=== PATIENT | male | born 1975 | race Caucasian/White ===

== ENCOUNTER 2021-01-04 17:11 | Emergency (ER) | payer BC, SELFPAY ==
[2021-01-04 17:16] VITALS: BP 126/88; PULSE 70; RESP 18; TEMP 36.4; O2SAT 99
[2021-01-04] MEDS: LIDOCAINE HCL 1% LOCAL INJ 20 ML VIAL (17:48)
--- NOTE | 2021-01-04 18:29 | ED.GENADULT ---
HPI - General Adult General Chief complaint: Wound/Laceration Stated complaint: laceration Time Seen by Provider: 01/04/21 17:13 Source: patient and RN notes reviewed Mode of arrival: ambulatory Limitations: no limitations History of Present Illness HPI narrative: Patient is a 45-year-old male who presents to emergency department for evaluation of laceration of the right davis that occurred just prior to arrival using a razor knife patient notes his tetanus may not be up-to-date notes mild aching pain worse with activity and movement presents in no distress has no other complaints Related Data Allergies Allergy/AdvReac Type Severity Reaction Status Date / Time No Known Allergies Allergy Unverified 01/11/18 06:27 Review of Systems Review of Systems: All systems reviewed & are unremarkable except as noted in HPI and below PMFSH Social History Social History (Updated 01/04/21 @ 18:31 by Santana Coreas PA-C) Smoking status: Never smoker Gender identity (if verbalized by the patient): Male Exam Narrative: Exam Narrative: GENERAL: Well-appearing, well-nourished, and in no acute distress. HEAD: Normocephalic, atraumatic. EYES: PERRLA and EOMI. ENT: Nares clear, no rhinorrhea or epistaxis. Mucous membranes moist. EXTREMITIES: Normal range of motion. No edema. SKIN: Warm, dry, no rash. 2.5 cm linear laceration of the anterior right davis NEURO: No focal deficits. Alert and oriented x3. PSYCH: Normal mood and affect. Course Course Emergency Course: Patient evaluated the emergency department for right lower extremity laceration and closure of the wound in the ER provided with reasons to return felt appropriate for outpatient reevaluation Vital Signs Vital signs: Vital Signs Temperature 97.5 F L 01/04/21 17:16 Pulse Rate 70 01/04/21 17:16 Respiratory Rate 18 01/04/21 17:16 Blood Pressure 126/88 01/04/21 17:16 Pulse Oximetry 99 01/04/21 17:16 Temperature 97.5 F L 01/04/21 17:16 Pulse Rate 70 01/04/21 17:16 Respiratory Rate 18 01/04/21 17:16 Blood Pressure 126/88 01/04/21 17:16 Pulse Oximetry 99 01/04/21 17:16 Procedures Laceration Laceration 1: Date: 01/04/21 Time: 18:32 Site: lower extremity Side (If applicable): right Size (cm): 2.5 Description: linear Depth: simple, single layer Local Anesthetic: lidocaine 1% Pre-repair: wound explored, irrigated and irrigated extensively ====== Skin Level ====== Skin layer closed with: giovanny Number of sutures: 5 ====== Subcutaneous Layer ====== ====== Muscle Layer ====== ====== Tendon Layer ====== Dressing: Antibiotic ointment nonadhesive 4 x 4 and Coban placed post procedure neurovascularly intact pre and post procedure Medical Decision Making MDM Narrative Medical decision making narrative: Patients injury or pain is consistent with musculoskeletal etiology. No signs of neurological or vascular compromise on exam. Compartments and tisues are soft without signs of compartment syndrome. Pain is felt appropriate for further evaluation on an outpatient basis. Had closure of laceration of the emergency department tetanus was updated Vital Signs Vital Signs: Vital Signs Temperature 97.5 F L 01/04/21 17:16 Pulse Rate 70 01/04/21 17:16 Respiratory Rate 18 01/04/21 17:16 Blood Pressure 126/88 01/04/21 17:16 Pulse Oximetry 99 01/04/21 17:16 Temperature 97.5 F L 01/04/21 17:16 Pulse Rate 70 01/04/21 17:16 Respiratory Rate 18 01/04/21 17:16 Blood Pressure 126/88 01/04/21 17:16 Pulse Oximetry 99 01/04/21 17:16 Discharge Plan Discharge Clinical Impression: Laceration Patient Disposition: Home, Self-Care Condition: Stable Instructions: Antibiotic Form, Laceration (ED) Additional Instructions: Keep wound clean and dry. Do not soak, take baths, or swim until wound is completely healed. If
[2021-01-04] MEDS: TETANUS,DIPHTHERIA,AC PERTUSSIS ADULT (0.5 ML) BOOSTRIX IM (18:48)
== END 2021-01-04 18:53 | disposition home or self-care (01) ==
PROVIDERS: Emergency Provider Emergency Medicine; PCP Family Medicine
DX: S81.811A Laceration without foreign body, right lower leg, initial encounter (principal); Z23 Encounter for immunization; W27.0XXA Contact with workbench tool, initial encounter
CPT/HCPCS: 12001; 90471; 90715; 99282

== ENCOUNTER 2023-02-08 20:36 | Emergency (ER) | payer BC, SELFPAY | END 2023-02-08 21:06 | disposition left against medical advice (07) | PROVIDERS: PCP Family Medicine | DX: Z53.21 Procedure and treatment not carried out due to patient leaving prior to being seen by health care provider (principal) | CPT/HCPCS: 99199 ==

== ENCOUNTER 2023-02-08 21:20 | Emergency (ER) | payer BC, SELFPAY ==
--- NOTE | ~2023-02-08 | XR_ITS ---
EXAMINATION: XR shoulder RT min 2V DATE: 02/08/2023 21:38 INDICATION: Right shoulder pain post fall while wrestling TECHNIQUE: AP internally and externally rotated, AP oblique externally rotated and transscapular Y vi ews of the right shoulder were obtained. COMPARISON: None FINDINGS: There is mild widening of the right acromioclavicular joint particularly when compared with earlier c hest radiograph dated 12/21/2008. There appears to be a minimal amount of cephalad subluxation of the l ateral head of the clavicle and slight widening of the coracoclavicular interval on the internally ro tated view. Mild S-shaped curvature of the mid to upper thoracic spine. Alignment is otherwise normal . No fracture. Glenohumeral joint space is normal. Visualized portions of the lungs are clear. No fra cture. Glenohumeral joint is normal. Acromioclavicular joint is normal. Soft tissues are unremarkable . IMPRESSION: Acromioclavicular joint separation, likely type III. No fracture. Reviewed, dictated and finalized at location A.
[2023-02-08 21:25] VITALS: BP 141/78; PULSE 65; RESP 14; TEMP 37; O2SAT 96
--- NOTE | 2023-02-09 00:51 | ED.UPPEXIN ---
HPI - Extremity Injury (Upper) General Chief Complaint: Extremity Injury, Upper Stated Complaint: shoulder Time Seen by Provider: 02/09/23 00:39 Source: patient Mode of arrival: ambulatory Limitations: no limitations History of Present Illness HPI narrative: This is a 47-year-old male who presents to emergency department for right shoulder pain after an injury just prior to arrival. Reports he fell onto the right shoulder. He has had pain in deformity to the shoulder. He was evaluated at urgent care and sent here for further management. Reports decreased range of motion due to pain. Denies numbness. Related Data Allergies Allergy/AdvReac Type Severity Reaction Status Date / Time No Known Allergies Allergy Verified 02/09/23 00:42 Review of Systems Review of Systems: CONSTITUTIONAL: Denies fever MUSCULOSKELETAL: Reports joint pain, and myalgia. NEUROLOGIC: Denies numbness All systems reviewed & are unremarkable except as noted in HPI and below PMFSH Past Medical History Medical History (Updated 02/09/23 @ 00:54 by Stacy Ariza PA-C) No active medical problems Social History Social History (Updated 01/04/21 @ 18:31 by Santana Coreas, NICHELLE) Smoking status: Never smoker Gender identity (if verbalized by the patient): Male Exam Narrative: GENERAL: Well-appearing, well-nourished, and in no acute distress. HEAD: Normocephalic, atraumatic. EYES: EOMI. EXTREMITIES: Decreased active ROM in the right shoulder above 90 degrees. Deformity at the AC joint. Normal radial pulse. Normal sensation SKIN: Warm, dry, no rash. NEURO: No focal deficits. Alert and oriented x3. PSYCH: Normal mood and affect Course Course Emergency Course: Patient was updated on workup and agrees with plan of care Vital Signs Vital signs: Vital Signs Temperature 98.6 F 02/08/23 21:25 Pulse Rate 65 02/08/23 21:25 Respiratory Rate 14 02/08/23 21:25 Blood Pressure 141/78 H 02/08/23 21:25 Pulse Oximetry 96 02/08/23 21:25 Oxygen Delivery Room Air 02/08/23 21:25 Temperature 98.6 F 02/08/23 21:25 Pulse Rate 65 02/08/23 21:25 Respiratory Rate 14 02/08/23 21:25 Blood Pressure 141/78 H 02/08/23 21:25 Pulse Oximetry 96 02/08/23 21:25 Oxygen Delivery Room Air 02/08/23 21:25 MDM - Extremity Injury (Upper) MDM Narrative Medical decision making narrative: Patient presents the emergency department for right shoulder pain after an injury just prior to arrival. Right shoulder x-ray shows AC separation. Patient placed in sling. He does report he has seen Dr. Ring in the past and would like to follow up with him again. He is neurovascularly intact. He was given warnings to return to the ER Differential Diagnosis Differential diagnosis: Likely other (Shoulder dislocation, AC separation) Imaging Data Radiologist's impression: ITS Impressions Shoulder X-Ray 02/08/23 21:58 IMPRESSION: Acromioclavicular joint separation, likely type III. No fracture. Critical Care Time Critical Care Time Critical Care Time: No Discharge Plan Discharge Clinical Impression: AC separation Qualifiers: Encounter type: initial encounter Laterality: right Qualified Code(s): S43.101A - Unspecified dislocation of right acromioclavicular joint, initial encounter Patient Disposition: Home, Self-Care Condition: Stable Instructions: Acromioclavicular Separation (ED) Additional Instructions: Return to the ER if you experience fever, redness and swelling of the arm, numbness, or any other symptoms that are concerning to you Wear sling. Rest, use ice, take anti-inflammatories (Aleve, Ibuprofen, Naproxen, etc) or Tylenol as needed for pain Follow up with the orthopedics Follow-up/Referrals: Garrett,Zeyad Rangel MD [Primary Care Provider] - Paul Ring MD [Physician] - 1 Week
[2023-02-09 00:59] VITALS: BP 128/87; PULSE 54; RESP 16; O2SAT 100
== END 2023-02-09 00:59 | disposition home or self-care (01) ==
PROVIDERS: Emergency Provider Physician Assistant; PCP Family Medicine
DX: S43.101A Unspecified dislocation of right acromioclavicular joint, initial encounter (principal); W19.XXXA Unspecified fall, initial encounter
CPT/HCPCS: 73030; 99283

== ENCOUNTER 2023-12-16 11:19 | Outpatient (CLI) | payer BC, SELFPAY ==
--- NOTE | ~2023-12-16 | XR_ITS ---
3 VIEWS LUMBAR SPINE Ordering provider: Megha Castillo History: . Low back pain . Comparison: None. FINDINGS: VERTEBRAL BODIES: No visible fracture or subluxation. DISK SPACES: Normal. SOFT TISSUES: Normal. IMPRESSION: No acute osseous abnormality lumbar spine. Reviewed, dictated and finalized at location A.
== END 2023-12-16 11:20 ==
DX: M54.50 Low back pain, unspecified (principal); G89.29 Other chronic pain
CPT/HCPCS: 72100

== ENCOUNTER 2024-10-15 16:08 | Outpatient (CLI) | payer BC, SELFPAY ==
--- NOTE | ~2024-10-15 | XR_ITS ---
XR finger 4th LT min 2V Ordering provider: Phill Milan MD History: . M20.012 - Mallet finger of left finger(s) . Comparison: None. FINDINGS: BONES: No acute fracture or dislocation. JOINT SPACES: Normal. SOFT TISSUES: Normal. IMPRESSION: No acute osseous abnormality. Reviewed, dictated and finalized at location A.
--- OUTSIDE RECORDS SUMMARY | 2024-10-15 18:08 | XMS_ITS | Clinical Summary ---
Author Organization [facility] Address [address] [place] [id number] Care Team Providers Care Command Post Craftsman Name Role Phone Zeyad Tucker MD Primary Care Provid er Allergies No known active allergies Medications rjmgw-6-ejo-epa -dpa-fish oil 1,050-1,200 mg capsuleIndicati ons:supplement Take 1 capsule by mouth every morning Active ascorbic acid (vitamin C) 100 mg tabletIndicatio ns:supplement Take 5 tablets (500 mg total) by mouth every morning Active glucos sul 2KCl/msm/chond/ C/Mn (GLUCOSAMINE CHONDROITIN ORAL)Indication s:joints Take 1 tablet/capsule by mouth every morning Active oxyCODONE (ROXICODONE) 5 mg immediate release tabletIndicatio ns:Pain Take 1 tablet (5 mg total) by mouth every 6 (six) hours as needed for pain 28 tablet 3 Active ketorolac (TORADOL) 10 mg tablet Take 1 tablet (10 mg total) by mouth every 6 (six) hours as needed for pain (first line pain) 12 tablet 3 Active senna-docusate (PERICOLACE) 8.6-50 mg Take 1 tablet by mouth 2 (two) times a day as needed for constipation 30 tablet 3 Active Active Problems Problem Noted Date Diagnosed Date Acromioclavicular joint injury, right, subsequen t encounter 05/09/2023 ACL graft tear, initial encounter 03/07/2019 Overview (03/07/2019): Added automatically from request for surgery [id number] Surgical History Surgery Date Site/Laterality Comments KNEE ARTHROSCOPY W/ ACL RECONSTRUCTION 06/20/2014 - 06/19/2015 Left anchors/screws placed KNEE ARTHROSCOPY W/ ACL RECONSTRUCTION 06/20/2006 - 06/19/2007 Right anchors/screws placed FOOT FRACTURE SURGERY 06/20/2012 - 06/19/2013 Left shaved bone behind big toe HAND SURGERY 06/20/2017 - 06/19/2018 Right small finger. GUM SURGERY x5 KNEE ARTHROSCOPY W/ ACL RECONSTRUCTION AND PATELLA GRAFT 04/26/2019 Left Medical History Medical History Date Comments Arthritis knee Delayed emergence from general anesthesia slow to wake after first ACl 2006. No problems since with other surgeies Family History Medical History Relation Name Comments Anesthesia problems Neg Hx Social History Tobacco Use Types Packs/Day Years Used Date Smoking Tobacco: Never Smokeless Tobacco: Never Alcohol Use Standard Drinks/Week Comments Yes 0 (1 standard drink = 0.6 oz pur e alcohol) rarely-1 beer every 2 weeks AUDIT-C Answer Date Recorded Q1: How often do you have a drink containing alc ohol? Monthly or less 05/25/2023 Q2: How many drinks containi ng alcohol do you have on a typical day when you are drinking? 1 or 2 05/25/2023 Q3: How often do you have si x or more drinks on one occasion? Never 05/25/2023 Personal Safety Answer Date Recorded Have you ever been in or are you currently in a harmful physical or emotional relationship or is someone making you feel afraid or unsafe? Denies 06/14/2023 Sex and Gender Information Value Date Recorded Sex Assigned at Not on file Legal Sex Male 7:39 PM LOCOMOTIVE DRIVER Gender Identity Male 11/30/2019 10:38 PM CDT Sexual Orientation Straight 11/30/2019 10 :38 PM CDT Obstetrics History Last Filed Vital Signs Vital Sign Reading Time Taken Comments Blood Pressure 108/73 06/14/2023 2:30 PM LOCOMOTIVE DRIVER Pulse 60 06/14/2023 2:35 PM LOCOMOTIVE DRIVER Temperature 36.8 C (98.2 F) 06/14/2023 2:20 PM LOCOMOTIVE DRIVER Respiratory Rate 14 06/14/2023 2:35 PM LOCOMOTIVE DRIVER Oxygen Saturation 95% 06/14/2023 2:35 PM LOCOMOTIVE DRIVER Inhaled Oxygen Concentration - - Weight 72.1 kg (158 lb 14.4 oz) 06/14/2023 9:54 AM LOCOMOTIVE DRIVER Height 172.7 cm (5' 8 ) 06/14/2023 9:54 AM LOCOMOTIVE DRIVER Body Mass Index 24.16 06/14/2023 9:54 AM LOCOMOTIVE DRIVER Plan of Treatment Health Maintenance Due Date Last Done Comments Colon Cancer Screening-Colonoscopy 1975 Depression Screening 1975 Hepatitis C Screening 1975 Hepatitis B Screening 1993 Regular Well Visit/Exam 18-64 1993 Covid-19 Vaccine (3 - 2023-2 5 season) 2024 10/30/2020, 10/03/2020 Influenza Vaccine (#1) 2024 03/07/2020 DTaP/Tdap/Td Vaccine (2 - Td or Tdap) 01/04/2031 01/04/2021 Pneumococcal vaccine <65 Aged Out No longer eligible based on patient's age to complete this topic Medical Devices Implanted Type Area Server Developer Device Identifier Shelf Expiration Date Model / Serial / Lot [employer] Ar-1390e 9mm 20mm Cannulated Sheath Acl Pcl Screw Interference Titanium - S00 - [id number] Implanted:Qty: 1 on 04/26/2019 by Gildardo Dunn MD at [facility] Screw Left: Knee [employer] 10/18/2023 AR-1390E / 00 / [id number] [employer] Ar-4020c-10 Screw Fastthread Biocomposite Interference 10mm X 20mm - S00 - [id number] Implanted:Qty: 1 on 04/26/2019 by Gildardo Dunn MD at [facility] Screw Left: Knee [employer] 07/20/2020 AR-4020C-10 / 00 / [id number] [employer] Ar-1355 6.5mm 25mm Depth Hayden Step Drill Acl/Pcl Cancellous Groove Low - S00 - [id number] Implanted:Qty: 1 on 04/26/2019 by Gildardo Dunn MD at [facility] Screw Left: Knee [employer] 10/18/2023 AR-1355 / 00 / [id number] Anchors/Screws Bilatera l: Knee Allosource Allograft Frozen Irradiate Graft Soft Tissue Semitendinosus [id number] - [id number] Implanted:Qty: 1 on 06/14/2023 by Kimberlyn Genao MD at [facility] [employer] 04/08/2028 [id number] / / [id number] Insurance [employer] [place] [employer] [place] [place] [employer] [place] [place] Care Teams Command Post Craftsman Relationship Specialty Start Date End Date Zeyad Tucker MD [address] [place], [place] [id number] PCP - General Family Medicine 02/09/19
--- OUTSIDE RECORDS SUMMARY | 2024-10-15 18:08 | XMS_ITS | Referral Summary ---
Author Organization [facility] Address [address] [place] [phone] Care Team Providers Care Staff Anesthetist Name Role Phone Zeyad Tucker MD Primary Care Provid er Allergies No known active allergies Medications alcqb-4-jvh-epa -dpa-fish oil 1,050-1,200 mg capsuleIndicati ons:supplement Take [...] (03/07/2019): Added automatically from request for surgery [id number] Social History Tobacco Use Types Packs/Day Years [...] on file Legal Sex Male 7:39 PM MEMBER SERVICES COORDINATOR Gender Identity Male 11/30/2019 10:38 PM CDT Sexual Orientation Straight 11/30/2019 10 :38 PM CDT Last Filed Vital Signs Vital Sign Reading Time Taken Comments Blood Pressure 108/73 06/14/2023 2:30 PM MEMBER SERVICES COORDINATOR Pulse 60 06/14/2023 2:35 PM MEMBER SERVICES COORDINATOR Temperature 36.8 C (98.2 F) 06/14/2023 2:20 PM MEMBER SERVICES COORDINATOR Respiratory Rate 14 06/14/2023 2:35 PM MEMBER SERVICES COORDINATOR Oxygen Saturation 95% 06/14/2023 2:35 PM MEMBER SERVICES COORDINATOR Inhaled Oxygen Concentration - - Weight 72.1 kg (158 lb 14.4 oz) 06/14/2023 9:54 AM MEMBER SERVICES COORDINATOR Height 172.7 cm (5' 8 ) 06/14/2023 9:54 AM MEMBER SERVICES COORDINATOR Body Mass Index 24.16 06/14/2023 9:54 AM MEMBER SERVICES COORDINATOR Plan of Treatment Not on file Medical Devices Implanted Type Area Telecommunications Operator Device Identifier Shelf Expiration Date Model / Serial / Lot [employer] Ar-1390e 9mm 20mm Cannulated Sheath Acl Pcl Screw Interference Titanium - S00 - [id number] Implanted:Qty: 1 on 04/26/2019 by Gildardo Dunn MD at [facility] Screw Left: Knee [employer] 10/18/2023 AR-1390E / 00 / [id number] [employer] Ar-4020c-10 Screw Fastthread Biocomposite Interference 10mm X 20mm - S00 - [id number] Implanted:Qty: 1 on 04/26/2019 by Gildardo Dunn MD at [facility] Screw Left: Knee [employer] 07/20/2020 AR-4020C-10 / 00 / [id number] [employer] Ar-1355 6.5mm 25mm Depth Hayden Step Drill Acl/Pcl Cancellous Groove Low - S00 - [id number] Implanted:Qty: 1 on 04/26/2019 by Gildardo Dunn MD at [facility] Screw Left: Knee [employer] 10/18/2023 AR-1355 / 00 / [id number] Anchors/Screws Bilatera l: Knee [employer]osource Allograft Frozen Irradiate Graft Soft Tissue Semitendinosus [id number] - [id number] Implanted:Qty: 1 on 06/14/2023 by Kimberlyn Genao MD at [facility] [employer] 04/08/2028 [id number] / / [id number] [place] [employer] [place] [facility] Care Teams Staff Anesthetist Relationship Specialty Start Date End Date Zeyad Tucker MD [address] [place] [address] PCP - General Family Medicine 02/09/19
--- OUTSIDE RECORDS SUMMARY | 2024-10-15 18:08 | XMS_ITS | Continuity of Care Document ---
Author Organization [facility] Address [address] [place] [address] [address] [place] [address] Phone Care Team Providers Care Plant Care Worker Name Role Phone Jacqueline Dempsey Unavailable Unavailable Advance Directives Directive Yes / No Effective Date File Name No Information Encounters Encounter Description Practice Location Reason(s) For Visit Diagnoses Date Provider Providers Copied on Encounter [facility], [address], [place], [place], [id number], [place] tel:[phone] [facility] No Information [address] , [address], [place], [address], [place]. tel:[phone] Family History Family Member Type Diagnosis Age At Onset No Information Payers Payer name Insurance type Covered alliance party ID Authoriza tion(s) No Information Social History Type Description Quantity Date Captured Comments Sex Male Smoking Status No Information Chief Complaint And Reason For Visit No Information Reason For Referral Reason For Referral No Information History Of Present Illness Encounter Date Complaint History Of Prese nt Illness No Information Functional Status Date Functional Assessmen t No Information Instructions Date Instruction Additional Infor mation No Information Assessments Type Assessment Date No Information Patient Care Teams Name Effective Dates (start - stop) Status Members No Information
== END 2024-10-15 16:09 | disposition home or self-care (01) ==
PROVIDERS: Visit Provider Plastic Surgery
DX: M20.012 Mallet finger of left finger(s) (principal)
CPT/HCPCS: 73140